=== PATIENT | male | born 1940 | race Caucasian/White ===

== ENCOUNTER 2017-10-30 17:46 | Inpatient (IN) | payer MEDICARE ==
[~2017-10-30] VITALS: Ht 180.3 cm; Wt 81.8 kg
[2017-10-30] MEDS ORDERED: ASPIRIN 325 MG TAB EC PO STA (18:01)
[2017-10-30] MEDS ORDERED: HYDROMORPHONE 1MG/1ML INJ IV STA (18:01)
[2017-10-30] MEDS ORDERED: ONDANSETRON HCL INJ 2 MG/ML VIAL IV STA (18:01)
[2017-10-30] MEDS ORDERED: HYDRALAZINE HCL 20 MG/ML VIAL IV ONE ×2 (18:15→20:00)
--- NOTE | 2017-10-30 18:51 | Diagnostic Imaging Report ---
Examination: Single AP view of the chest. COMPARISON: None. INDICATION: Chest pain DISCUSSION: Lines/tubes: None. Lungs: The lungs are well inflated and clear. There is no evidence of pneumonia or pulmonary edema. Pleura: There is no pleural effusion or pneumothorax. Heart and mediastinum: The heart and the mediastinum are unremarkable. Bones and soft tissues: No acute bony abnormalities. IMPRESSION: 1. No acute cardiopulmonary abnormalities. Signed by: Dr. Micah Tran M.D. on 10/30/2017 6:48 PM
[2017-10-30] MEDS ORDERED: METOPROLOL TART50 MG PO (19:08)
[2017-10-30] MEDS ORDERED: ASPIR 8181 MG PO (19:09)
[2017-10-30] MEDS ORDERED: CLOPIDOGREL75 MG PO (19:09)
[2017-10-30 19:35] LABS: BASOPHILS # (AUTO) 0.1 (0.0-0.1); BASOPHILS % 0.5 % (0.0-1.0); EOSINOPHILS # (AUTO) 0.3 (0.0-0.4); EOSINOPHILS % 2.3 % (0.0-6.0); HEMATOCRIT 48.2 % (38.2-49.6); HEMOGLOBIN 16.1 g/dL (14.0-18.0); LYMPHOCYTES # (AUTO) 2.5 (1.0-3.2); LYMPHOCYTES % 20.9 % (18.0-39.1); MEAN CORPUSCULAR HEMOGLOBIN 30.4 pg (28-32); MEAN CORPUSCULAR HGB CONC 33.4 g/dL (31-35); MEAN CORPUSCULAR VOLUME 91.1 fL (81-99); MONOCYTES # (AUTO) 0.9 (0.2-0.8); MONOCYTES % 7.1 % (4.4-11.3); NEUTROPHILS # (AUTO) 8.2 (2.1-6.9); NEUTROPHILS % 68.8 % (38.7-80.0); PLATELET COUNT 150 x10e3/uL (140-360); RED BLOOD COUNT 5.29 x10e6/uL (4.3-5.7); RED CELL DISTRIBUTION WIDTH 13.2 % (11.7-14.4)
[2017-10-30 19:41] LABS: INR 1.05; PARTIAL THROMBOPLASTIN TIME 30.9 seconds (23.8-35.5); PROTHROMBIN TIME 14.2 seconds (11.9-14.5)
[2017-10-30 19:50] LABS: ALANINE AMINOTRANSFERASE 18 IU/L (0-55); ALBUMIN 3.8 g/dL (3.5-5.0); ALKALINE PHOSPHATASE 55 IU/L (40-150); ANION GAP 12.2 mmol/L (8-16); BLOOD UREA NITROGEN 12 mg/dL (7-26); BUN/CREATININE RATIO 13 (6-25); CALCIUM 9.2 mg/dL (8.4-10.2); CARBON DIOXIDE 22 mmol/L (22-29); CHLORIDE 103 mmol/L (98-107); CREATINE KINASE 36 IU/L (30-200); CREATININE, SERUM 0.92 mg/dL (0.72-1.25); EST GLOMERULAR FILTRATION RATE > 60 ML/MIN (60-); GLUCOSE 88 mg/dL (74-118); POTASSIUM 4.2 mmol/L (3.5-5.1); SODIUM 133 mmol/L (136-145)
[2017-10-30 19:51] LABS: MAGNESIUM 2.2 MG/DL (1.3-2.1)
[2017-10-30] MEDS ORDERED: NITROGLYCERIN 2% OINT 1 GM PKT TOP ONE (20:15)
[2017-10-30] MEDS ORDERED: ENOXAPARIN SODIUM INJ 100 MG/ML SYR SC STA (20:25)
[2017-10-30] MEDS ORDERED: NITROGLYCERIN 0.4 MG SUBL SL PRN (20:30)
[2017-10-30] MEDS ORDERED: ONDANSETRON HCL INJ 2 MG/ML VIAL IV PRN (20:30)
[2017-10-30] MEDS ORDERED: MORPHINE SULFATE 2 MG/ML SYR IV PRN (20:30)
[2017-10-30] MEDS: FAMOTIDINE 20 MG/2 ML VIAL IV SCH (20:54)
[2017-10-30] MEDS ORDERED: HYDRALAZINE HCL 20 MG/ML VIAL IV PRN (21:30)
[2017-10-30 21:40] VITALS: BP 169/75
[2017-10-30 21:43] VITALS: BP 169/75
[2017-10-30 21:49] VITALS: BP 169/75
[2017-10-31] VITALS (9 sets, daily range): BP systolic 137–173; BP diastolic 63–77
[2017-10-31 03:15] LABS: CREATINE KINASE MB 1.2 ng/mL (0.00-5.00)
[2017-10-31] MEDS: NITROGLYCERIN 2% OINT 1 GM PKT TOP SCH ×4 (04:36→18:00)
[2017-10-31 07:35] LABS: CHOL/HDL RATIO 5.9 (3.9-4.7)
[2017-10-31] MEDS: FAMOTIDINE 20 MG/2 ML VIAL IV SCH ×2 (09:32→21:20)
[2017-10-31] MEDS: CLOPIDOGREL BISULFATE 75 MG TAB PO SCH (09:32)
[2017-10-31] MEDS: ASPIRIN 81 MG ENTERIC COATED PO SCH (09:32)
[2017-10-31 10:23] LABS: BASOPHILS % 0.3 % (0.0-1.0); EOSINOPHILS # (AUTO) 0.2 (0.0-0.4); EOSINOPHILS % 1.2 % (0.0-6.0); HEMOGLOBIN 15.6 g/dL (14.0-18.0); LYMPHOCYTES # (AUTO) 2.1 (1.0-3.2); LYMPHOCYTES % 17.6 % (18.0-39.1); MEAN CORPUSCULAR HEMOGLOBIN 30.9 pg (28-32); MEAN CORPUSCULAR HGB CONC 33.9 g/dL (31-35); MEAN CORPUSCULAR VOLUME 91.1 fL (81-99); MONOCYTES # (AUTO) 0.7 (0.2-0.8); MONOCYTES % 6.1 % (4.4-11.3); NEUTROPHILS # (AUTO) 8.9 (2.1-6.9); NEUTROPHILS % 74.4 % (38.7-80.0); PLATELET COUNT 115 x10e3/uL (140-360); RED BLOOD COUNT 5.05 x10e6/uL (4.3-5.7); RED CELL DISTRIBUTION WIDTH 13.5 % (11.7-14.4)
[2017-10-31] MEDS: LOSARTAN POTASSIUM 100 MG TAB PO SCH (10:29)
[2017-10-31 10:50] LABS: CREATINE KINASE MB 1.3 ng/mL (0.00-5.00)
[2017-10-31 10:55] LABS: BLOOD UREA NITROGEN 9 mg/dL (7-26); BUN/CREATININE RATIO 10 (6-25); CALCIUM 9.3 mg/dL (8.4-10.2); CARBON DIOXIDE 25 mmol/L (22-29); CHLORIDE 101 mmol/L (98-107); CREATININE, SERUM 0.89 mg/dL (0.72-1.25); EST GLOMERULAR FILTRATION RATE > 60 ML/MIN (60-); GLUCOSE 112 mg/dL (74-118); SODIUM 134 mmol/L (136-145)
--- NOTE | 2017-10-31 11:51 | Consultation ---
DATE OF CONSULTATION: October 31, 2017 CARDIOLOGY CONSULTATION REASON FOR CONSULTATION: Chest pain. HISTORY OF PRESENT ILLNESS: This is a 76-year-old male that presents to [facility] with some chest discomfort. He does have a history of CAD with stent placement in 2007 in RCA, hypertension, hypercholesterolemia, ex-tobacco use. As mentioned before, the patient presented to [facility] ER with complaints of chest pain for several days, left-sided, tightness in nature, radiating up to his left arm and relieved with rest. Denies any associated symptoms. However, he also complains of hypertension. He states his blood pressures are in 180s/80s at home, which made him more concerned for which he came to the ER also. In the ER, he was noted with blood pressure of 217/86. He was given hydralazine times 2. The patient does states that he has been taking his medications as directed. Currently, the patient is with no chest pain. Enzymes have been negative times 2. EKG is showing no acute changes suggestive of ischemia. PAST MEDICAL HISTORY: CAD with stent placement in the RCA in 2007, hypertension, hyperlipidemia, ex-tobacco use. SURGICAL HISTORY: Bilateral cataract surgery and stent placement in his RCA in 2007. FAMILY HISTORY: Mother at 93 of old age and did have a history of heart failure. Father at the age of 63 and did have a history of valvular heart disease. Three sisters, 2 sons and 1 daughter. One daughter with liver problems. One sister with emphysema. Another sister with valvular heart disease. SOCIAL HISTORY: He is a . He is a retired academic tutor. He quit tobacco use in 1998. Also, he quit alcohol use in 1998. ALLERGIES: LISINOPRIL CAUSING COUGH, PENICILLIN WITH RASH, SIMVASTATIN WITH MUSCLE ACHES. REVIEW OF SYSTEMS GENERAL: Denies any fatigue, weakness, fever, chills, night sweats, headaches. HEENT: Denies any nausea, vomiting, any headache, vision changes, any blurred vision or double vision, any tinnitus, vertigo, earaches, any stuffiness, rhinorrhea, epistaxis, any sore throat, swollen neck. CARDIAC: Positive chest pain as mentioned in the HPI. Positive for dyspnea on exertion. Denies any orthopnea, PND, or lower extremity edema. RESPIRATORY: Positive dyspnea on exertion. Denies any wheezing, coughing, hemoptysis. GI: Good appetite. No nausea or vomiting. Positive for diarrhea times 2 days, last episode yesterday. No hematemesis or hematochezia. URINARY: Denies any frequency, urgency, polyuria, dysuria, hematuria, nocturia. VASCULAR: Denies any lower extremity edema or any claudication. MUSCULOSKELETAL: Positive for muscle weakness. Positive for generalized joint pains and back pain. NEURO: Denies any tremors, blackouts, seizures. HEMATOLOGY: Denies any anemia, easy bruising. ENDOCRINE: No heat or cold intolerance. No polyuria, polydipsia, polyphagia. PHYSICAL EXAMINATION VITAL SIGNS: On admission, blood pressure 217/86, heart rate 67, temperature 96.8. Currently, blood pressure 165/77, heart rate 75, temperature 97.5. Height 71 inches. Weight 181 pounds. GENERAL: Appears his stated age, in no acute distress. SKIN: No rashes or bruises noted. HEENT: Normocephalic. Pupils are equal and reactive. Extraocular motor intact. Trachea is midline. Oral mucosa is pink. No thyromegaly. No JVD. HEART: Regular rate and rhythm. No murmurs or clicks noted. PMI in 4th to 5th intercostal space. LUNGS: Clear to auscultation bilaterally. No wheezes or crackles. ABDOMEN: Soft, nontender and nondistended. No organomegaly noted. MUSCULOSKELETAL: Good muscle strength throughout 5/5. No lower extremity swelling. VASCULAR: +2 bilateral radial pulses, +1 DP and PT pulses bilaterally. NEUROLOGIC: Cranial nerves II through XII intact. LABS: White count 11, hemoglobin 16, hematocrit 48, platelets 150. Sodium 133, potassium 4.2, chloride 103, bicarb 22, BUN 12, creatinine 0.9, AST 23, ALT 18, alk phos 55. Troponin 0.009, next 0.031. Lipase 35, amylase 78. Chest x-ray showing no cardiopulmonary abnormalities. EKG showing normal sinus rhythm. IMPRESSION 1. Coronary artery disease with chest pain. 2. Hypertensive urgency. 3. Hyperlipidemia. 4. Abdominal pain. PLAN 1. The patient presents with chest pain symptoms for the past several days. So far, negative enzymes times 2. EKG showing no acute changes suggestive of ischemic event. 2. Will continue the patient on aspirin, Plavix and beta piedad therapy. 3. Will add losartan to therapy secondary to his blood pressure. 4. Will get an echo to evaluate heart function and structure. 5. Will go ahead and do a stress test in the morning. Thank you very much for this consult. Will follow the patient's progression and adjust cardiac therapy as the clinical course dictates. Dictated by: Gil Cunha NP Job#: [id number] MH
[2017-10-31 12:34] LABS: BILIRUBIN,URINE NEGATIVE (NEGATIVE); KETONES,URINE NEGATIVE (NEGATIVE); LEUKOCYTE ESTERASE ,URINE NEGATIVE (NEGATIVE); NITRITE,URINE NEGATIVE (NEGATIVE); PROTEIN,URINE DIPSTICK NEGATIVE (NEGATIVE); URINE UROBILINOGEN 0.2 mg/dL (0.2 - 1)
[2017-10-31 12:40] LABS: AMPHETAMINES SCREEN,URINE NEGATIVE (NEGATIVE); BENZODIAZEPINES SCREEN,URINE NEGATIVE (NEGATIVE); PHENCYCLIDINE SCREEN,URINE NEGATIVE (NEGATIVE)
[2017-10-31 13:04] LABS: CLARITY,URINE CLEAR (CLEAR); COLOR,URINE YELLOW (YELLOW)
[2017-10-31 13:05] LABS: AMORPHOUS SEDIMENT,URINE RARE (FEW)
[2017-11-01 00:08] VITALS: BP 144/68
[2017-11-01 04:00] VITALS: BP 132/68
[2017-11-01] MEDS: NITROGLYCERIN 2% OINT 1 GM PKT TOP SCH ×4 (06:00→16:13)
[2017-11-01 08:00] VITALS: BP 177/76
[2017-11-01] MEDS ORDERED: REGADENOSON 0.4 MG/5 ML SYR IV ONE (08:14)
[2017-11-01] MEDS: ASPIRIN 81 MG ENTERIC COATED PO SCH (08:16)
[2017-11-01] MEDS: LOSARTAN POTASSIUM 100 MG TAB PO SCH (08:16)
[2017-11-01] MEDS: CLOPIDOGREL BISULFATE 75 MG TAB PO SCH (08:16)
[2017-11-01] MEDS: FAMOTIDINE 20 MG/2 ML VIAL IV SCH ×2 (08:16→21:30)
[2017-11-01 12:00] VITALS: BP 182/78
[2017-11-01 16:00] VITALS: BP 162/74
[2017-11-01] MEDS ORDERED: LOSARTAN POTASSIUM 100 MG TAB PO STA (16:02)
--- NOTE | 2017-11-01 16:42 | Cardiology Report ---
DATE OF STUDY: November 01, 2017 LEXISCAN NUCLEAR STRESS TEST INDICATIONS FOR STUDY: A 76-year-old gentleman with a history of hypertension, hypercholesterolemia, coronary artery disease with a prior history of PCI, who presents to this institution with chest pain and is unable to exercise. DESCRIPTION OF PROCEDURE: After risks, benefits, pros and cons to today's Lexiscan nuclear stress test were explained to the patient, the patient agreed to proceed. The patient's protocol was done over a span of 2 days. He was brought to the nuclear lab where he received a 10.2 mCi dose of technetium 99 tetrofosmin intravenously and then was taken to the [employer] SPECT camera for resting myocardial perfusion imaging. The next day, he was brought back to the stress lab where 12-lead EKG and blood pressure monitoring were obtained. He received a dose of Lexiscan 0.4 mg intravenously followed by a 32.0 mCi dose of technetium 99 tetrofosmin intravenously. Resting heart rate went from a baseline of 93 beats per minute to a maximum of 116 beats per minute, and blood pressure went from a baseline of 139/109 to 161/52, which is an appropriate hemodynamic response. The underlying EKG revealed normal sinus rhythm, normal axis, and no significant ST-T-wave changes. With Lexiscan infusion, there were no ischemic EKG changes or symptoms. After 25 minutes, he was then brought to the SPECT camera for stress myocardial perfusion imaging. FINDINGS 1. Resting myocardial perfusion imaging reveals a small area of decreased uptake in the inferior wall. 2. Stress myocardial perfusion imaging reveals a moderate-size decreased uptake in the inferior wall. Comparing to the rest, this appears to be a mixed ischemia scar area. However, on raw data analysis, there is noteworthy hot GI artifact overlying these segments which could influence the quality of this data. There is also decreased anterior wall counts as well not present on resting imaging, moderate in size. 3. The following gated measurements were obtained: End-diastolic volume was 54 mL, end-systolic volume 18 mL, calculated left ventricular ejection fraction 66% with normal wall motion. CONCLUSIONS 1. Abnormal myocardial perfusion imaging study revealing a moderate-size, partially reversible, inferior wall defect which could be consistent with a mixture of scar ischemia in the RCA distribution. 2. Another area suspicious of ischemia noted in the anterior wall distribution. 3. Normal left ventricular function with EF calculated to be 66%. 4. Findings on the stress test are compatible with at least an intermediate risk stress test for the purposes of revascularization. Job#: [id number] [facility]
[2017-11-01] MEDS: METOPROLOL TARTRATE 25 MG TAB PO SCH (17:00)
[2017-11-01 20:15] VITALS: BP 158/81
[2017-11-01] MEDS: AMLODIPINE BESYLATE 5 MG TAB PO SCH (21:30)
[2017-11-01] MEDS: ATORVASTATIN 20 MG TAB PO SCH (21:30)
[2017-11-01] MEDS ORDERED: SODIUM CHLORIDE 0.9% 1000ML 1,000 ML IV SCH (23:00)
[2017-11-02] VITALS (7 sets, daily range): BP systolic 125–149; BP diastolic 65–84
[2017-11-02] MEDS: NITROGLYCERIN 2% OINT 1 GM PKT TOP SCH ×4 (00:23→18:01)
[2017-11-02] MEDS: FAMOTIDINE 20 MG/2 ML VIAL IV SCH ×3 (00:29→22:19)
[2017-11-02 06:44] LABS: BASOPHILS # (AUTO) 0.1 (0.0-0.1); BASOPHILS % 0.6 % (0.0-1.0); EOSINOPHILS # (AUTO) 0.3 (0.0-0.4); EOSINOPHILS % 2.6 % (0.0-6.0); HEMATOCRIT 47.7 % (38.2-49.6); LYMPHOCYTES # (AUTO) 3.3 (1.0-3.2); LYMPHOCYTES % 26.3 % (18.0-39.1); MEAN CORPUSCULAR HEMOGLOBIN 30.9 pg (28-32); MEAN CORPUSCULAR HGB CONC 33.5 g/dL (31-35); MEAN CORPUSCULAR VOLUME 92.3 fL (81-99); MONOCYTES # (AUTO) 0.9 (0.2-0.8); MONOCYTES % 7.2 % (4.4-11.3); NEUTROPHILS # (AUTO) 7.8 (2.1-6.9); PLATELET COUNT 161 x10e3/uL (140-360); RED BLOOD COUNT 5.17 x10e6/uL (4.3-5.7); RED CELL DISTRIBUTION WIDTH 13.7 % (11.7-14.4)
[2017-11-02 06:55] LABS: INR 1.01; PROTHROMBIN TIME 13.8 seconds (11.9-14.5)
[2017-11-02 07:04] LABS: ALANINE AMINOTRANSFERASE 13 IU/L (0-55); ALBUMIN 3.5 g/dL (3.5-5.0); ALBUMIN/GLOBULIN RATIO 0.9 (0.8-2.0); ALKALINE PHOSPHATASE 47 IU/L (40-150); ANION GAP 14.2 mmol/L (8-16); BLOOD UREA NITROGEN 11 mg/dL (7-26); BUN/CREATININE RATIO 10 (6-25); CALCIUM 9.7 mg/dL (8.4-10.2); CARBON DIOXIDE 22 mmol/L (22-29); CHLORIDE 105 mmol/L (98-107); CREATININE, SERUM 1.05 mg/dL (0.72-1.25); EST GLOMERULAR FILTRATION RATE > 60 ML/MIN (60-); GLUCOSE 103 mg/dL (74-118); POTASSIUM 4.2 mmol/L (3.5-5.1); SODIUM 137 mmol/L (136-145)
[2017-11-02] MEDS: ASPIRIN 81 MG ENTERIC COATED PO SCH (09:00)
[2017-11-02] MEDS: CLOPIDOGREL BISULFATE 75 MG TAB PO SCH (09:00)
[2017-11-02] MEDS: METOPROLOL TARTRATE 25 MG TAB PO SCH ×2 (09:00→18:00)
[2017-11-02] MEDS ORDERED: FENTANYL CITRATE/PF 100MCG/2 ML INJ ONE (09:17)
[2017-11-02] MEDS ORDERED: MIDAZOLAM HCL 2 MG/2 ML VIAL ONE (09:18)
[2017-11-02] MEDS ORDERED: LIDOCAINE HCL 2% LOCAL 20 ML VIAL ONE (09:18)
[2017-11-02] MEDS ORDERED: HEPARIN SOD/SOD CHLORIDE 2,000 ML ONE (09:18)
[2017-11-02] MEDS ORDERED: IOPAMIDOL 370 MG/ML 200 ML INFUS..BTL INJ ONE ×2 (09:18→10:16)
[2017-11-02] MEDS ORDERED: SODIUM CHLORIDE 0.9% 1000ML 1,000 ML ONE (09:18)
[2017-11-02] MEDS ORDERED: BIVALIRUDIN 250 MG/VIAL IV ONE (10:13)
[2017-11-02] MEDS ORDERED: SODIUM CHLORIDE 0.9% 50ML 50 ML ONE (10:14)
[2017-11-02] MEDS ORDERED: CLOPIDOGREL BISULFATE 75 MG TAB ONE ×2 (10:33→10:34)
[2017-11-02] MEDS ORDERED: ASPIRIN 325 MG TAB ONE (10:33)
[2017-11-02] MEDS ORDERED: ACETAMINOPHEN 325 MG TAB PO PRN (11:00)
[2017-11-02] MEDS ORDERED: ZOLPIDEM TARTRATE 5 MG TAB PO PRN (11:00)
[2017-11-02] MEDS ORDERED: ONDANSETRON HCL INJ 2 MG/ML VIAL IV PRN (11:00)
[2017-11-02] MEDS ORDERED: HYDROCODONE/APAP 5MG-325MG TAB PO PRN (11:00)
--- NOTE | 2017-11-02 12:05 | Operative Report ---
DATE OF PROCEDURE: November 02, 2017 TITLE OF PROCEDURE 1. Left cardiac catheterization. 2. Percutaneous coronary intervention of the proximal left anterior descending coronary artery. 3. Abdominal angiogram. INDICATIONS: Angina, positive stress test, claudication and decreased pulse in the right common femoral artery. TECHNICAL DETAILS: After the usual sterile preparation and draping procedures, intravenous Versed and fentanyl were given for sedation and local Xylocaine for anesthesia. A 4-Malawian sheath was established in the left common femoral artery because of decreased pulse in the right common femoral artery. A 4-Malawian sheath was established in place. Shawn left 4 and 3DRC catheters used to engage the coronaries. Pigtail for left ventriculogram and hemodynamic measurement as well as for abdominal angiogram. A decision was made to proceed with intervention. For that reason, the existing 4-Malawian sheath was exchanged to 6-Malawian sheath. Guiding catheter was XB4. Only Angio-Max was given. The lesion was crossed. It was long, severe, heavily calcified and stented using 2.5 x 32 Synergy drug-eluted stent up to 22 atmospheres. Final diameter of 2.85. Repeated angiogram showed good results. The case was ended. The patient was transferred to the recovery area. Sheath is to be removed manually because of presence of peripheral arteriovascular disease and SFA disease as well as iliac disease in that artery. There were no complications, and there was no blood loss. RESULTS A. Coronary angiogram. 1. Left main: Long left main with 20% distal left main disease. 2. LAD very large artery wrapping around the heart with 90% long calcified lesion. 3. Ramus is moderate in size with mild disease. 4. Circumflex coronary artery giving medium size 1st obtuse marginal with 70% ostial lesion. There is in the proper circ 80% lesion before a sizeable another obtuse marginal artery. 5. Right coronary artery: There is patency of the mid-RCA stent. There is diffusely diseased artery, 50% proximally and 50% distally, with several disease in the PLV and PDA branches. B. Hemodynamics: Aorta pressure 126/60. LV pressure 126/11. C. Left ventriculogram in the right anterior oblique view showed hypercontractile ventricle, ejection fraction of 70%. D. Abdominal angiogram. Abdominal angiogram done because of claudication of the right leg and the decreased pulse in the right common femoral artery. This revealed diseased distal abdominal aorta at 50% with 50% renal disease. On the right leg, there is 95% severe disease of the right common iliac artery. On the left side, there is 50% iliac disease. There is 80% origin of SFA disease. Angiogram was only for abdominal and pelvic area and the origin of the femorals. E. PCI procedure: Guiding catheter 6-Malawian XB4. Angio-Max bolus only. Stent is 2.5 x 32 mm Synergy Zostel drug-eluted stent up to 22 atmospheres. Final diameter of 2.8 mm. Lesion prior to intervention was type C, long, at 90% calcified. Following intervention at zero percent. IMPRESSION 1. Three-vessel coronary artery disease with patent mid right coronary artery stent. 2. Left ventricular ejection fraction of 70%. 3. Severe right common iliac disease and severe left origin of the superficial femoral artery disease with diffuse calcified aorta with diffuse disease. 4. Successful percutaneous coronary intervention stenting of complex type-C lesion of the left anterior descending. COMPLICATIONS: None. BLOOD LOSS: None. RECOMMENDATION: Aggressive medical therapy. Evaluation for the circumflex lesion and the right common iliac disease. Job#: [id number]
[2017-11-02] MEDS: LOSARTAN POTASSIUM 100 MG TAB PO SCH (14:00)
[2017-11-02] MEDS: SODIUM CHLORIDE 0.9% 1000ML 1,000 ML IV SCH (22:19)
[2017-11-02] MEDS: AMLODIPINE BESYLATE 5 MG TAB PO SCH (22:20)
[2017-11-02] MEDS: ATORVASTATIN 20 MG TAB PO SCH (22:20)
[2017-11-03] VITALS: BP 131/62
[2017-11-03 04:00] VITALS: BP 131/67
[2017-11-03] MEDS: NITROGLYCERIN 2% OINT 1 GM PKT TOP SCH ×2 (06:00)
[2017-11-03] MEDS: SODIUM CHLORIDE 0.9% 1000ML 1,000 ML IV SCH (06:32)
[2017-11-03 07:08] LABS: BASOPHILS % 0.5 % (0.0-1.0); EOSINOPHILS # (AUTO) 0.5 (0.0-0.4); EOSINOPHILS % 5.6 % (0.0-6.0); HEMATOCRIT 38.3 % (38.2-49.6); LYMPHOCYTES # (AUTO) 1.9 (1.0-3.2); LYMPHOCYTES % 22.6 % (18.0-39.1); MEAN CORPUSCULAR HEMOGLOBIN 30.8 pg (28-32); MEAN CORPUSCULAR HGB CONC 33.9 g/dL (31-35); MEAN CORPUSCULAR VOLUME 90.8 fL (81-99); MONOCYTES # (AUTO) 0.6 (0.2-0.8); MONOCYTES % 7.3 % (4.4-11.3); NEUTROPHILS # (AUTO) 5.4 (2.1-6.9); NEUTROPHILS % 63.8 % (38.7-80.0); PLATELET COUNT 95 x10e3/uL (140-360); RED BLOOD COUNT 4.22 x10e6/uL (4.3-5.7); RED CELL DISTRIBUTION WIDTH 13.8 % (11.7-14.4)
[2017-11-03 07:34] LABS: ALANINE AMINOTRANSFERASE 14 IU/L (0-55); ALKALINE PHOSPHATASE 39 IU/L (40-150); BLOOD UREA NITROGEN 8 mg/dL (7-26); BUN/CREATININE RATIO 9 (6-25); CALCIUM 8.1 mg/dL (8.4-10.2); CARBON DIOXIDE 23 mmol/L (22-29); CHLORIDE 111 mmol/L (98-107); CREATININE, SERUM 0.85 mg/dL (0.72-1.25); EST GLOMERULAR FILTRATION RATE > 60 ML/MIN (60-); GLUCOSE 97 mg/dL (74-118); SODIUM 139 mmol/L (136-145)
[2017-11-03 08:10] VITALS: BP 134/60
[2017-11-03] MEDS: CLOPIDOGREL BISULFATE 75 MG TAB PO SCH (08:23)
[2017-11-03] MEDS: ASPIRIN 81 MG ENTERIC COATED PO SCH (08:23)
[2017-11-03] MEDS: METOPROLOL TARTRATE 25 MG TAB PO SCH (08:23)
[2017-11-03] MEDS: LOSARTAN POTASSIUM 100 MG TAB PO SCH (08:23)
[2017-11-03] MEDS: FAMOTIDINE 20 MG/2 ML VIAL IV SCH (08:23)
[2017-11-03 11:48] VITALS: BP 126/60
[2017-11-03] MEDS ORDERED: NORVASC5 MG PO (11:58)
[2017-11-03] MEDS ORDERED: LIPITOR20 MG PO (11:58)
[2017-11-03] MEDS ORDERED: LOSARTAN POTAS100 MG PO (11:59)
--- NOTE | 2017-12-25 10:33 | Discharge Summary ---
CHIEF COMPLAINT: Chest pain at rest. FINAL DIAGNOSES: 1. Coronary artery disease. 2. Hypertension. 3. Status post stent placement. PROCEDURES: 1. Lexiscan nuclear stress test. 2. Cardiac catheterization left with intervention. DISPOSITION: Home. A 76-year-old male with known history of hypertension, coronary artery disease, and GERD, brought to the ER with 2-day history of left arm discomfort associated with vague retrosternal discomfort that was relieved temporarily with Zantac. No other complaints other than having some issues with some loose stools. Underwent review and evaluation in the emergency room, was admitted to the facility for treatment and evaluation regarding chest/epigastric discomfort, hypertension, coronary artery disease, GERD. Will be obtaining full set of cardiac enzymes, continue home medications, will be requesting a cardiology follow. With admission, patient did undergo cardiac follow with Dr. Lawler. With his evaluation of the patient, his findings represented coronary artery disease with chest pain, hypertensive urgency, hyperlipidemia, abdominal pain. Two cardiac enzymes have returned, they have been negative. EKG studies were showing no acute changes. Will continue on the aspirin and the Plavix and beta blockers. Will set the patient up for a stress test. He was being reviewed in [facility], was on a cardiac diet, was on aspirin 81 mg daily, Plavix 75 mg daily, morphine sulfate for pain management 2 mg IV q.3, hydralazine 10 mg q.4h. for BP support along with losartan. Early labs were showing stable electrolytes. Kidney functions stable. Glucose 112. CBC: Hemoglobin of 15.6, the white cell count of 12,000. Patient was resting comfortably, was in no acute distress. Underwent the Cardiolite stress test with positive results. Further adjustment of the BP medication resulted in values of 144/65 noted on November 02, 2017. Due to the stress test findings, patient was taken to the pharmacy laboratory technician by Dr. Lawler. Noted to have blockage in the left anterior descending, underwent stent placement to that vessel. Postprocedure uneventful, was doing well postprocedure. Labs continued to be stable. Patient being cleared for discharge and was able to be released home on November 03, 2017 in stable condition. The Lexiscan stress test reveals a small area of decreased uptake in the inferior wall. The stress perfusion reveals a moderate size decreased uptake in the inferior wall. Stress versus resting images revealed a moderate size decreased uptake in the inferior wall, appears to be a mixed ischemia scar area, which resulted in findings of an abnormal study. The findings are compatible with intermediate risk. EKGs, normal sinus rhythm; with an echocardiogram showing an ejection fraction of 60% to 65%. With the findings of the stress test, patient agreed and signed up for the catheterization for possible PCI with Dr. Lawler. The cath he underwent November 02, 2017. Title of procedure is left cardiac catheterization, percutaneous coronary intervention in the proximal left anterior descending, abdominal angiogram. Findings of the left anterior descending were revealing a very large artery wrapping around the heart with a 90% long calcified lesion. Ramus was noted to be moderate in size with mild disease. Circumflex giving medium size first obtuse marginal with a 70% ostial lesion. There is in the proper circ 80% lesion before a sizeable another obtuse marginal artery. Right coronary artery has a patency stent, and the findings did reveal a 3-vessel disease with a patent right coronary artery stent. The abdominal findings were showing severe right common iliac disease with severe left origin of the superficial femoral artery disease with diffuse calcified aorta with diffuse disease. There was successful percutaneous coronary intervention and stenting of a complex type C lesion of the left anterior descending. There were no complications, no blood loss. Patient will begin aggressive medical therapy, recommending further evaluation of the right common iliac disease on outpatient basis. Postop did well and was able to be discharged. With discharge, patient will continue with a cardiac diet. No equipment or supplies necessary. No drains or Babcock are needed. Activity level, patient is instructed to have no strenuous activity, no heavy lifting, may shower and remove dressings from the groin area. He will be following back up with his PCP within 2 weeks. He will be following back up with Dr. Lawler in 1 week. He was given a prescription for Lipitor 20 mg 1 tablet p.o. daily, Norvasc 5 mg 1 tablet daily, Plavix 75 mg 1 tablet daily, and losartan 100 mg daily. Will also be taking aspirin 81 mg daily and metoprolol 50 mg twice a day. Dictated By: KIKE Walter Job#: [id number]
== END 2017-11-03 12:22 | disposition home or self-care (01) | DRG 247 ==
LOC: ER 17:46 → IMCU 21:07 → OBSVTOIN 11-01 17:45 → MED/SURG3 11-01 20:05 → MED/SURG 11-02 22:49
PROC: 027034Z Dilation of Coronary Artery, One Artery with Drug-eluting Intraluminal Device, Percutaneous Approach (ICD-10-PCS; principal; 2017-11-02)
PROC: 4A023N7 Measurement of Cardiac Sampling and Pressure, Left Heart, Percutaneous Approach (ICD-10-PCS; 2017-11-02)
PROC: B2111ZZ Fluoroscopy of Multiple Coronary Arteries using Low Osmolar Contrast (ICD-10-PCS; 2017-11-02)
PROC: B2151ZZ Fluoroscopy of Left Heart using Low Osmolar Contrast (ICD-10-PCS; 2017-11-02)
PROC: B41D1ZZ Fluoroscopy of Aorta and Bilateral Lower Extremity Arteries using Low Osmolar Contrast (ICD-10-PCS; 2017-11-02)
DX: I25.110 Atherosclerotic heart disease of native coronary artery with unstable angina pectoris (principal); I10 Essential (primary) hypertension; I25.84 Coronary atherosclerosis due to calcified coronary lesion; F17.210 Nicotine dependence, cigarettes, uncomplicated; Z95.5 Presence of coronary angioplasty implant and graft; Z87.891 Personal history of nicotine dependence; K21.9 Gastro-esophageal reflux disease without esophagitis; I70.213 Atherosclerosis of native arteries of extremities with intermittent claudication, bilateral legs; Z79.82 Long term (current) use of aspirin; Z79.02 Long term (current) use of antithrombotics/antiplatelets
CPT/HCPCS: 36140; 36415; 71045; 75625; 77002; 78452; 80048; 80053; 80061; 80307; 81001; 82150; 82550; 82553; 82948; 83690; 83735; 84484; 85025; 85610; 85730; 87086; 93005; 93017; 93306; 93452; 93458; 96361; 99284; A9502; C1766; C1874; C9603; G0378; J0360; J0583; J1650; J2001; J2250; J2405; J7030; Q9967

== ENCOUNTER → 2021-06-23 | Outpatient (CLI) | payer MEDICARE ==
[~2021-06-23] MED LIST: ASPIR 8181 MG PO; CLOPIDOGREL75 MG PO; LIPITOR20 MG PO; LOSARTAN POTAS100 MG PO; METOPROLOL TART50 MG PO; NORVASC5 MG PO
== END ==
LOC: RAD 11:00
DX: D72.829 Elevated white blood cell count, unspecified (principal); R05 Cough
CPT/HCPCS: 71046

== ENCOUNTER 2022-11-04 14:56 | Observation (INO) | payer MEDICARE, OTHER ==
[~2022-11-04] VITALS: Ht 180.3 cm; Wt 81.6 kg
[2022-11-04] MEDS ORDERED: TETANUS/DIPHTHERIA TOX ADULT 0.5 ML SYR IM ONE (15:15)
[2022-11-04 15:40] LABS: BASOPHILS % 0.4 % (0.0-1.0); EOSINOPHILS # (AUTO) 0.1 (0.0-0.4); EOSINOPHILS % 1.7 % (0.0-6.0); HEMATOCRIT 48.3 % (38.2-49.6); HEMOGLOBIN 15.3 g/dL (14.0-18.0); LYMPHOCYTES # (AUTO) 1.5 (1.0-3.2); LYMPHOCYTES % 18.6 % (18.0-39.1); MEAN CORPUSCULAR HEMOGLOBIN 30.3 pg (28-32); MEAN CORPUSCULAR HGB CONC 31.7 g/dL (31-35); MEAN CORPUSCULAR VOLUME 95.6 fL (81-99); MONOCYTES # (AUTO) 0.4 (0.2-0.8); MONOCYTES % 5.5 % (4.4-11.3); NEUTROPHILS # (AUTO) 5.8 (2.1-6.9); NEUTROPHILS % 73.4 % (38.7-80.0); PLATELET COUNT 172 x10e3/uL (140-360); RED BLOOD COUNT 5.05 x10e6/uL (4.3-5.7); RED CELL DISTRIBUTION WIDTH 13.4 % (11.7-14.4)
[2022-11-04 15:56] LABS: ALBUMIN 3.5 g/dL (3.5-5.0); ALBUMIN/GLOBULIN RATIO 0.9 (0.8-2.0); ANION GAP 12.1 mmol/L (8-16); CALCIUM 9.2 mg/dL (8.4-10.2); CREATININE, SERUM 0.97 mg/dL (0.72-1.25); POTASSIUM 4.1 mmol/L (3.5-5.1)
[2022-11-04] MEDS ORDERED: ACETAMINOPHEN 325 MG TAB PO PRN (18:00)
[2022-11-04 20:00] VITALS: BP 146/73
[2022-11-04 20:05] VITALS: BP 146/73
[2022-11-04 21:00] VITALS: BP 146/73
[2022-11-05] VITALS (7 sets, daily range): BP systolic 129–154; BP diastolic 53–81
[2022-11-05 05:06] LABS: BASOPHILS % 0.6 % (0.0-1.0); EOSINOPHILS # (AUTO) 0.2 (0.0-0.4); EOSINOPHILS % 2.8 % (0.0-6.0); HEMATOCRIT 43.6 % (38.2-49.6); HEMOGLOBIN 13.9 g/dL (14.0-18.0); LYMPHOCYTES # (AUTO) 1.4 (1.0-3.2); MEAN CORPUSCULAR HEMOGLOBIN 30.1 pg (28-32); MEAN CORPUSCULAR HGB CONC 31.9 g/dL (31-35); MEAN CORPUSCULAR VOLUME 94.4 fL (81-99); MONOCYTES # (AUTO) 0.5 (0.2-0.8); MONOCYTES % 6.4 % (4.4-11.3); NEUTROPHILS % 70.1 % (38.7-80.0); PLATELET COUNT 145 x10e3/uL (140-360); RED BLOOD COUNT 4.62 x10e6/uL (4.3-5.7); RED CELL DISTRIBUTION WIDTH 13.2 % (11.7-14.4)
[2022-11-05 05:20] LABS: CALCIUM 8.7 mg/dL (8.4-10.2); CREATININE, SERUM 0.87 mg/dL (0.72-1.25)
[2022-11-05 05:45] LABS: CREATINE KINASE 120 IU/L (30-200)
[2022-11-05 05:57] LABS: CREATINE KINASE MB < 1.00 ng/mL (0-4.3)
[2022-11-05] MEDS ORDERED: DOCUSATE SODIUM 100 MG CAP PO SCH (09:00)
[2022-11-05] MEDS ORDERED: SENNOSIDES 8.6 MG TAB PO SCH (09:00)
[2022-11-05] MEDS ORDERED: FAMOTIDINE 20 MG TAB PO SCH (10:00)
[2022-11-05 14:49] LABS: CREATINE KINASE MB 1.4 ng/mL (0-5.0)
== END 2022-11-05 16:05 | disposition home or self-care (01) ==
LOC: ER 15:03 → ERHOLD 17:14 → MED/SURG 18:28
PROVIDERS: ADMIT Internal Medicine; ATTEND Internal Medicine
DX: R55 Syncope and collapse (principal); I25.119 Atherosclerotic heart disease of native coronary artery with unspecified angina pectoris; I10 Essential (primary) hypertension; E78.5 Hyperlipidemia, unspecified; W18.39XA Other fall on same level, initial encounter; Y93.89 Activity, other specified; Y92.524 Gas station as the place of occurrence of the external cause; Z20.822 Contact with and (suspected) exposure to COVID-19
CPT/HCPCS: 36415 ×2; 70450; 71045; 73080; 73130; 80048; 80053; 82550; 82553; 84443; 84484 ×2; 85025 ×2; 93005; 93306; 94799 ×2; 97161; 99285; G0378 ×2; U0002